=== PATIENT | female | born 1995 ===

== ENCOUNTER 2017-10-25 18:07 | Emergency (ER) | payer MEDICAID, OTHER ==
[2017-10-25 18:52] VITALS: BP 114/77; PULSE 89; RESP 20; TEMP 100.3; O2SAT 98
--- NOTE | 2017-10-25 19:43 | C.PDOC ---
History Of Present Illness 22 year old female presents to the ED c/o body aches, generalized weakness, malaise, cough, fever. Patient states that some of her coworkers have similar symptoms and she is afraid this might be the same. Patient reports she took Advil at home last night for her symptoms. Patient denies SOB, CP, vomiting, nausea, diarrhea, abdominal pain. Time Seen by Provider: 10/25/17 19:28 Chief Complaint (Nursing): Flu-like Symptoms History Per: Patient History/Exam Limitations: no limitations Onset/Duration Of Symptoms: Days Current Symptoms Are (Timing): Still Present Location Of Pain: Throat, Diffuse Myalgias Sick Contacts (Context): Individual(s) At Work Associated Symptoms: Fever, Cough, Myalgias Ear Symptoms: Bilateral: None Severity: None Recent travel outside of the [place]: No Additional History Per: Patient Past Medical History Reviewed: Historical Data, Nursing Documentation, Vital Signs Vital Signs: Last Vital Signs Temp 100.3 F H 10/25/17 18:50 Pulse 89 10/25/17 18:50 Resp 20 10/25/17 18:50 BP 114/77 10/25/17 18:50 Pulse Ox 98 10/25/17 19:43 - Medical History PMH: No Chronic Diseases Surgical History: No Surg Hx Family History: States: Unknown Family Hx - Social History Hx Tobacco Use: No Hx Alcohol Use: No Hx Substance Use: No - Immunization History Hx Tetanus Toxoid Vaccination: Yes Hx Influenza Vaccination: No Hx Pneumococcal Vaccination: No Review Of Systems Constitutional: Positive for: Fever. Negative for: Chills Cardiovascular: Negative for: Chest Pain, Palpitations Respiratory: Positive for: Cough. Negative for: Shortness of Breath Gastrointestinal: Negative for: Nausea, Vomiting, Abdominal Pain Genitourinary: Negative for: Dysuria, Hematuria Musculoskeletal: Negative for: Back Pain Skin: Negative for: Rash Neurological: Negative for: Weakness, Numbness Physical Exam - Physical Exam Appears: Non-toxic, No Acute Distress Skin: Normal Color, Warm, Dry Head: Atraumatic, Normacephalic Eye(s): bilateral: Normal Inspection Ear(s): Bilateral: Normal Nose: No Discharge, No Deformity Oral Mucosa: Moist Throat: Normal, No Erythema, No Exudate Neck: Normal ROM, Supple Chest: Symmetrical Cardiovascular: Rhythm Regular, No Murmur Respiratory: Normal Breath Sounds, No Rales, No Rhonchi, No Wheezing Gastrointestinal/Abdominal: Soft, No Tenderness, No Guarding, No Rebound Extremity: Normal ROM, No Pedal Edema, No Calf Tenderness, No Deformity, No Swelling Neurological/Psych: Oriented x3, Normal Speech, Normal Cognition Gait: Steady ED Course And Treatment O2 Sat by Pulse Oximetry: 98 (On RA) Pulse Ox Interpretation: Normal Progress Note: Plan: -Tylenol 975 mg PO. Patient is resting comfortably, and is in no acute distress. Patient was instructed to follow up with PMD in 1-2 days for further evaluation. Disposition Counseled Patient/Family Regarding: Diagnosis, Need For Followup, Rx Given - Disposition Referrals: Jed Winters, CORIN, BINGO CALLER [Advanced Practice Nurse] - Disposition: HOME/ ROUTINE Disposition Time: 19:41 Condition: STABLE Additional Instructions: Increase PO fluids Bed rest Take meds as directed Follow up with PMD in 1-2 days Return to ER if worse Prescriptions: Benzonatate [Tessalon Perles] 100 mg PO TID #20 sgl Cetirizine HCl [Zyrtec] 10 mg PO DAILY #14 capsule Ibuprofen [Motrin] 600 mg PO Q6H #20 tab Instructions: Cold Symptoms (ED) Forms: [facility] (Guatemalan), Work Excuse - Clinical Impression Clinical Impression: Influenza-like illness - 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 - Scribe Statement The provider has reviewed the documentation as recorded by the Scribe Parrish Carvalho All medical record entries made by the Scribe were at my direction and personally dictated by me. I have reviewed the chart and agree that the record accurately reflects my personal performance of the history, physical exam, medical decision making, and the department course for this patient. I have also personally directed, reviewed, and agree with the discharge instructions and disposition.
== END 2017-10-25 19:55 | disposition home or self-care (01) ==
LOC: C.ER 18:07
DX: J11.1 Influenza due to unidentified influenza virus with other respiratory manifestations (principal)

== ENCOUNTER 2018-05-18 17:47 | Emergency (ER) | payer OTHER ==
[2018-05-18 18:00] VITALS: BP 127/84; PULSE 83; RESP 16; TEMP 98.3; O2SAT 99
--- NOTE | 2018-05-18 18:44 | C.PDOC ---
Time Seen by Provider: 05/18/18 18:22 Chief Complaint (Nursing): GI Problem Past Medical History Vital Signs: Last Vital Signs Temp 98.3 F 05/18/18 17:56 Pulse 83 05/18/18 17:56 Resp 16 05/18/18 17:56 BP 127/84 05/18/18 17:56 Pulse Ox 99 05/18/18 17:56 Family History: States: Unknown Family Hx - Social History Hx Tobacco Use: No Hx Alcohol Use: No Hx Substance Use: No - Immunization History Hx Tetanus Toxoid Vaccination: Yes Hx Influenza Vaccination: No Hx Pneumococcal Vaccination: No ED Course And Treatment O2 Sat by Pulse Oximetry: 99 Medical Decision Making Medical Decision Making: prob traveler's diarrhea, back from [place] 7 days ago symptoms resolving empiric Cipro 500 PO BID x 3 days Stool studies when able to provide sample. Disposition Doctor Will See Patient In The: Office Counseled Patient/Family Regarding: Studies Performed, Diagnosis - Disposition Referrals: FAMILY PROVIDER,NO [Primary Care Provider] - Disposition: HOME/ ROUTINE Disposition Time: 18:44 Condition: GOOD - Clinical Impression Clinical Impression: Travelers' diarrhea
--- NOTE | 2018-05-18 18:48 | C.PDOC ---
History Of Present Illness 23 y/o female presents to the ED with 5 day history of fever, nausea, vomiting, diarrhea, diffuse bodyaches, and generalized weakness. Patient states she recently traveled to [place] and returned on Monday. Reports her cousin who traveled with her has similar symptoms, and he was given an unknown patch. Patient saw her primary doctor, and was prescribed Augmentin which she has not taken. She describes having 4 episodes of watery non-bloody diarrhea, and multiple episodes of non-bloody vomiting yesterday, but none today. Pt still reports feeling nauseous with decreased appetite and fevers today. Last took Motrin at 2:00pm. Time Seen by Provider: 05/18/18 18:22 Chief Complaint (Nursing): GI Problem History Per: Patient History/Exam Limitations: no limitations Onset/Duration Of Symptoms: Days (x5) Current Symptoms Are (Timing): Still Present Context: Travel Associated Symptoms: Nausea, Vomiting, Diarrhea Past Medical History Reviewed: Historical Data, Nursing Documentation, Vital Signs Vital Signs: Last Vital Signs Temp 98.3 F 05/18/18 17:56 Pulse 83 05/18/18 17:56 Resp 16 05/18/18 17:56 BP 127/84 05/18/18 17:56 Pulse Ox 99 05/18/18 18:50 Family History: States: Unknown Family Hx - Social History Hx Tobacco Use: No Hx Alcohol Use: No Hx Substance Use: No - Immunization History Hx Tetanus Toxoid Vaccination: Yes Hx Influenza Vaccination: No Hx Pneumococcal Vaccination: No Review Of Systems Except As Marked, All Systems Reviewed And Found Negative. Constitutional: Positive for: Fever, Weakness, Other (Body aches) Cardiovascular: Negative for: Chest Pain Respiratory: Negative for: Shortness of Breath Gastrointestinal: Positive for: Nausea, Vomiting, Diarrhea. Negative for: Constipation, Hematochezia, Hematemesis Genitourinary: Negative for: Dysuria, Frequency, Incontinence, Hematuria Skin: Negative for: Rash Neurological: Negative for: Weakness, Numbness, Dizziness Physical Exam - Physical Exam Appears: Non-toxic, No Acute Distress Skin: Normal Color, Warm, Dry, No Pale Head: Atraumatic, Normacephalic Eye(s): bilateral: Normal Inspection, PERRL, EOMI Oral Mucosa: Moist Throat: Normal, No Erythema, No Exudate Neck: Normal ROM, Supple Chest: Symmetrical Cardiovascular: Rhythm Regular (but slightly tachy), No Murmur Respiratory: Normal Breath Sounds, No Accessory Muscle Use Gastrointestinal/Abdominal: Bowel Sounds (hyperactive), Soft, No Tenderness, No Guarding Back: Normal Inspection, No CVA Tenderness Extremity: Bilateral: Atraumatic, Normal Color And Temperature, Normal ROM Neurological/Psych: Oriented x3, Normal Speech Gait: Steady ED Course And Treatment O2 Sat by Pulse Oximetry: 99 (RA) Pulse Ox Interpretation: Normal Medical Decision Making Medical Decision Making: Initial Plan: --Ova and parasite --Pepcid 20 mg PO --Motrin 600 mg PO --Cipro 500 mg PO Impression: prob traveler's diarrhea, back from [place] 7 days ago symptoms resolving empiric Cipro 500 PO BID x 3 days Stool studies when able to provide sample. Disposition Counseled Patient/Family Regarding: Diagnosis, Need For Followup, Rx Given - Disposition Referrals: FAMILY PROVIDER,NO [Primary Care Provider] - Disposition: HOME/ ROUTINE Disposition Time: 18:44 Condition: STABLE Additional Instructions: BRAT diet: Bananas, white rice, apples, toast/bread x 2 days Cipro 500 mg twice a day for 3 days as empiric treatment for Traveler's Diarrhea. Drink plenty of fluids/Gatorade. Follow-up in our outpatient [facility] as needed. Prescriptions: Ciprofloxacin [Cipro] 1 tab PO BID #5 tab Instructions: Traveler's Diarrhea Forms: [facility] ([place] Islander) - POA Present On Arrival: None - Clinical Impression Clinical Impression: Travelers' diarrhea - Scribe Statement The provider has reviewed the documentation as recorded by the Carlos Vieira Provider Attestation: All medical record entries made by the Carlos were at my direction and personally dictated by me. I have reviewed the chart and agree that the record accurately reflects my personal performance of the history, physical exam, medical decision making, and the department course for this patient. I have also personally directed, reviewed, and agree with the discharge instructions and disposition.
== END 2018-05-18 18:53 | disposition home or self-care (01) ==
LOC: C.ER 17:47
DX: R19.7 Diarrhea, unspecified (principal)

== ENCOUNTER 2018-05-21 14:09 | Emergency (ER) | payer OTHER ==
[2018-05-21 14:24] VITALS: BMI 24.2
[2018-05-21 14:25] VITALS: BP 108/74; PULSE 76; RESP 16; TEMP 98; O2SAT 100
--- NOTE | 2018-05-21 14:51 | C.PDOC ---
History Of Present Illness 23 year old female presents to the ED c/o diffuse rash. Patient was seen on Monday and diagnosed with traveler virus and placed on antibiotics. Patient reports that she had an outbreak and stated feeling itchy. Patient denies fever , chill, throat pain, cough , SOB, lip swelling, facial swelling. Time Seen by Provider: 05/21/18 14:26 Chief Complaint (Nursing): Abnormal Skin Integrity History Per: Patient History/Exam Limitations: no limitations Onset/Duration Of Symptoms: Days Current Symptoms Are (Timing): Still Present Reports Recently: Seen In ED (05/18/18) Recent travel outside of the [place]: No Additional History Per: Patient Past Medical History Reviewed: Historical Data, Nursing Documentation, Vital Signs Vital Signs: Last Vital Signs Temp 98.0 F 05/21/18 14:23 Pulse 76 05/21/18 14:23 Resp 16 05/21/18 14:23 BP 108/74 05/21/18 14:23 Pulse Ox 100 05/21/18 14:54 - Medical History PMH: No Chronic Diseases Surgical History: No Surg Hx Family History: States: Unknown Family Hx - Social History Hx Tobacco Use: No Hx Alcohol Use: No Hx Substance Use: No - Immunization History Hx Tetanus Toxoid Vaccination: Yes Hx Influenza Vaccination: No Hx Pneumococcal Vaccination: No Review Of Systems Constitutional: Negative for: Fever, Chills Cardiovascular: Negative for: Chest Pain Respiratory: Negative for: Cough, Shortness of Breath Gastrointestinal: Negative for: Nausea, Vomiting, Abdominal Pain Skin: Positive for: Rash Neurological: Negative for: Weakness, Numbness Physical Exam - Physical Exam Appears: Non-toxic, No Acute Distress Skin: Normal Color, Warm, Dry, Rash (diffuse ) Head: Atraumatic, Normacephalic Eye(s): bilateral: Normal Inspection Ear(s): Bilateral: Normal Oral Mucosa: Moist Tongue: No Swelling Lips: No Swelling Throat: Normal, No Erythema, No Exudate Neck: Normal ROM, Supple Chest: Symmetrical Cardiovascular: Rhythm Regular Respiratory: Normal Breath Sounds, No Rales, No Rhonchi, No Wheezing Extremity: Normal ROM, No Tenderness, No Swelling Neurological/Psych: Oriented x3, Normal Speech Gait: Steady ED Course And Treatment O2 Sat by Pulse Oximetry: 100 (ON RA) Pulse Ox Interpretation: Normal Medical Decision Making Medical Decision Making: Plan: * Benadryl 50 mg PO Disposition Counseled Patient/Family Regarding: Diagnosis, Need For Followup, Rx Given - Disposition Referrals: YOUR,PMD [Other] Disposition: HOME/ ROUTINE Disposition Time: 14:49 Condition: IMPROVED Prescriptions: DiphenhydrAMINE [Benadryl] 50 mg PO TID PRN #30 cap PRN Reason: Itching / Pruritus Instructions: Itchy Skin Forms: [facility] (B[place]an), Work Excuse - Clinical Impression Clinical Impression: Generalized pruritus - Scribe Statement The provider has reviewed the documentation as recorded by the Scribe Parrish Carvalho All medical record entries made by the Cadenibe were at my direction and personally dictated by me. I have reviewed the chart and agree that the record accurately reflects my personal performance of the history, physical exam, medical decision making, and the department course for this patient. I have also personally directed, reviewed, and agree with the discharge instructions and disposition.
== END 2018-05-21 14:58 | disposition home or self-care (01) ==
LOC: C.ER 14:09
DX: L29.9 Pruritus, unspecified (principal)